=== PATIENT | female | born 1960 | race Caucasian/White ===

== ENCOUNTER 2024-08-20 09:37 | Emergency (ER) | payer MEDICAID ==
[~2024-08-20] VITALS: Ht 160 cm; Wt 65.0 kg
[2024-08-20 09:48] VITALS: TEMP 36.6; O2SAT 96
[2024-08-20] MEDS ORDERED: ACETAMINOPHEN 325MG TABLET PO ONE (10:15)
[2024-08-20] MEDS ORDERED: METHYLPREDNISOLONE SOD SUCC 40MG/ML (ACT-O-VIAL) IV ONE (10:15)
[2024-08-20] MEDS ORDERED: NAPR-1486 MT (10:19)
[2024-08-20 10:44] VITALS: O2SAT 98
[2024-08-20 10:53] VITALS: BP 104/62; PULSE 60; RESP 13
[2024-08-20] MEDS: KETOROLAC 30MG/ML VIAL IM ONE (10:53)
== END 2024-08-20 09:46 | disposition home or self-care (01) ==
LOC: ER 09:37 → CANBEDREQ 11:28
DX: M79.662 Pain in left lower leg (principal); E11.9 Type 2 diabetes mellitus without complications; Z79.1 Long term (current) use of non-steroidal anti-inflammatories (NSAID)
CPT/HCPCS: 96372; 99283; J1885; Z7610 ×2

== ENCOUNTER 2024-09-30 13:31 | Emergency (ER) | payer MEDICAID, OTHER ==
[~2024-09-30] VITALS: Ht 160 cm; Wt 74.0 kg
[~2024-09-30 13:31] MED LIST: NAPR-1486 MT
[2024-09-30 13:39] VITALS: O2SAT 98
[2024-09-30] MEDS: SODIUM CHLORIDE 0.9% 1,000 ML IV ONE (14:31)
[2024-09-30] MEDS: METOCLOPRAMIDE HCL 10MG/2ML VIAL IV ONE (14:31)
[2024-09-30 14:52] LABS: BASOPHILS % 0.9 % (0.0-2.0); EOSINOPHILS % 1.3 % (0.0-5.0); HEMATOCRIT. 39.1 % (36.0-48.0); HEMOGLOBIN. 13.0 g/dL (12.0-16.0); LYMPHOCYTES % 35.0 % (20.0-50.0); MEAN PLATELET VOLUME 8.4 fl (7.4-10.4); MONOCYTES % 7.3 % (2.0-8.0); NEUTROPHILS % 55.5 % (40.0-76.0); PLATELET 307 x1000/uL (130-400); RED BLOOD CELL COUNT 4.31 mill/uL (4.2-5.4); RED CELL DISTRIBUTION WIDTH 14.4 % (11.6-14.6)
[2024-09-30 15:04] LABS: CREATININE 0.6 mg/dL (0.6-1.0)
[2024-09-30 15:05] LABS: TROPONIN I HIGH SENSITIVITY < 4 ng/L (3.0-34); UREA NITROGEN BLOOD 16 mg/dL (9-23)
[2024-09-30 15:06] LABS: ASPARTATE AMINOTRANSFERASE 34 IU/L (<34)
[2024-09-30 15:07] LABS: BILIRUBIN DIRECT < 0.1 mg/dL (<=3.0); BILIRUBIN TOTAL 0.4 mg/dL (0.1-1.0); PROTEIN TOTAL 7.3 g/dL (6.0-8.3)
[2024-09-30 15:08] LABS: CLARITY URINE CLEAR (CLEAR); COLOR URINE YELLOW (YELLOW); GLUCOSE URINE NEGATIVE (NEGATIVE); KETONES URINE NEGATIVE (NEGATIVE); LEUKOCYTE ESTERASE URINE 3+ (NEGATIVE); NITRITE URINE NEGATIVE (NEGATIVE); OCCULT BLOOD URINE NEGATIVE (NEGATIVE); PH URINE 6.5 (4.5-8.0); PROTEIN URINE NEGATIVE (NEGATIVE); SPECIFIC GRAVITY URINE 1.008 (1.005-1.030); UROBILINOGEN URINE 0.2 E.U./dL (0.2-1.0)
[2024-09-30 15:20] LABS: SQUAMOUS EPITHELIAL CELL URINE 1+ /lpf (RARE/1+)
[2024-09-30 15:22] LABS: RBC URINE 0-2 /hpf (0-2)
[2024-09-30 15:23] LABS: BACTERIA URINE TRACE
[2024-09-30] MEDS ORDERED: CEFP200T13 MT (15:39)
[2024-09-30 16:10] VITALS: BP 112/60; PULSE 50; RESP 16; TEMP 36.7; O2SAT 100
== END 2024-09-30 16:17 | disposition home or self-care (01) ==
LOC: ER 13:31
DX: N39.0 Urinary tract infection, site not specified (principal); E11.9 Type 2 diabetes mellitus without complications
CPT/HCPCS: 80076; 80048; 81003; 82962; 83735; 85025; 87086; 84484; 36415; 71045; 70450; 96361; 96374; 99285; J2765; J7030; Z7610

== ENCOUNTER 2024-11-16 08:18 | Emergency (ER) | payer OTHER ==
[~2024-11-16] VITALS: Ht 160 cm; Wt 61.0 kg
[~2024-11-16 08:18] MED LIST changes: +CEFP200T13 MT
[2024-11-16 08:20] VITALS: O2SAT 98
[2024-11-16] MEDS ORDERED: TOPUD PO (09:03)
[2024-11-16] MEDS: KETOROLAC 15MG/ML VIAL IM ONE (09:24)
[2024-11-16 09:26] VITALS: BP 106/50; PULSE 60; RESP 16; TEMP 36.6; O2SAT 98
== END 2024-11-16 09:29 | disposition home or self-care (01) ==
LOC: ER 08:18
DX: M54.9 Dorsalgia, unspecified (principal); E11.9 Type 2 diabetes mellitus without complications; Z79.899 Other long term (current) drug therapy
CPT/HCPCS: 82962; 96372; 99283; J1885; Z7610 ×2